=== PATIENT | female | born 1960 | race Caucasian/White ===

== ENCOUNTER → 2016-08-15 | Outpatient (CLI) | payer BC | LOC: MC.RAD 16:54 | DX: Z12.31 Encounter for screening mammogram for malignant neoplasm of breast (principal) ==

== ENCOUNTER → 2017-08-28 | Outpatient (CLI) | payer BC | LOC: MC.RAD 06:55 | DX: Z12.31 Encounter for screening mammogram for malignant neoplasm of breast (principal); N64.89 Other specified disorders of breast ==

== ENCOUNTER → 2017-09-01 | Outpatient (CLI) | payer BC | LOC: MC.RAD 09:20 | DX: R92.2 Inconclusive mammogram (principal); N64.89 Other specified disorders of breast ==

== ENCOUNTER → 2018-08-31 | Outpatient (CLI) | payer BC | LOC: MC.RAD 07:00 | DX: Z12.31 Encounter for screening mammogram for malignant neoplasm of breast (principal) ==

== ENCOUNTER → 2019-09-13 | Outpatient (CLI) | payer BC | LOC: MC.RAD 17:09 | DX: Z12.31 Encounter for screening mammogram for malignant neoplasm of breast (principal) ==

== ENCOUNTER → 2020-09-19 | Outpatient (CLI) | payer BC | LOC: MC.RAD 08:26 | DX: Z12.31 Encounter for screening mammogram for malignant neoplasm of breast (principal) ==

== ENCOUNTER → 2021-10-18 | Outpatient (CLI) | payer BC | LOC: MC.RAD 16:56 | DX: Z12.31 Encounter for screening mammogram for malignant neoplasm of breast (principal) ==

== ENCOUNTER → 2023-11-27 | Outpatient (CLI) | payer BC | LOC: MC.RAD 06:45 | DX: Z12.31 Encounter for screening mammogram for malignant neoplasm of breast (principal) ==